=== PATIENT | male | born 1965 | race Caucasian/White ===

== ENCOUNTER 2019-08-07 23:06 | Emergency (ER) | payer OTHER ==
[2019-08-08] MEDS: ONDANSETRON 4 MG INJ IV (00:18)
[2019-08-08] MEDS: HYDROmorphONE 0.5 MG/0.5 ML SYG IV ×2 (00:18→01:20)
[2019-08-08] MEDS: KETOROLAC 30 MG INJ IV (00:40)
== END 2019-08-08 01:57 | disposition home or self-care (01) ==
LOC: E/R 23:06
DX: N20.1 Calculus of ureter (principal); I10 Essential (primary) hypertension; Z21 Asymptomatic human immunodeficiency virus [HIV] infection status; Z87.891 Personal history of nicotine dependence
CPT/HCPCS: 36415; 74176; 80053; 81003; 83690; 85025; 96374; 96375; 96376; 99285-25